=== PATIENT | female | born 1985 | race Caucasian/White ===

== ENCOUNTER 2018-06-02 17:15 | Emergency (ER) | payer OTHER ==
[2018-06-02 17:35] VITALS: BP 107/67
--- NOTE | 2018-06-02 18:11 | UC ---
Abdominal Pain Female HPI - HPI Summary HPI Summary: 32 yo who states she has been suffering from low abdominal pain for the past 2 days. On 05-31-18 the pain woke her up from sleep and she was kept under observation overnight at [facility]. She states that the CT scan showed a left ovarian cyst and fibroids, but that her pain is more in the right pelvic area now. She has history of endometriosis and has had exploratory laparoscopy in the past. Since she was discharged from the ER she states she has had nothing to eat or drink and continues having nausea, vomiting (last episode after drinking coffee this morning) and diarrhea. Denies any significant vaginal discharge or dysuria. The abdominal pain impairs her walking. - History of Current Complaint Chief Complaint: UCAbdominalPain Stated Complaint: RIGHT LOWER ABDOMINAL PAIN Time Seen by Provider: 06/02/18 17:46 Hx Obtained From: Patient Hx Last Menstrual Period: 05/25/18 ?: No Onset/Duration: Sudden Onset, Lasting Days Timing: Constant Severity Initially: Moderate Severity Currently: Severe Pain Intensity: 8 Location: Discrete At: RLQ Radiates: Yes Radiates to: Inguinal Character: Sharp Aggravating Factor(s): Nothing Alleviating Factor(s): Nothing Associated Signs and Symptoms: Positive: Diaphoresis, Fever, Nausea, Vomiting, Diarrhea - Risk Factors Ectopic Risk Factor: Maternal Age ^ 30, Prior Pelvic Surgery Ovarian Torsion Risk Factor: Reproductive Age, Ovarian Cysts/Tumors Allergies/Adverse Reactions: Allergies Allergy/AdvReac Type Severity Reaction Status Date / Time naproxen Allergy Itching Verified 06/02/18 17:48 Penicillins Allergy Hives Verified 06/02/18 17:48 tramadol Allergy See Comment Verified 06/02/18 17:48 Home Medications: Home Medications Oxycodone HCl/Acetaminophen [Percocet 5-325 mg Tablet] 1 each PO DAILY 06/02/18 [History Confirmed 06/02/18] clonazePAM TAB(*) [KlonoPIN TAB(*)] 1 mg PO BID 06/02/18 [History Confirmed ] PMH/Surg Hx/FS Hx/Imm Hx Previously Healthy: Yes Psychological History: Depression - Surgical History Surgical History: Yes Surgery Procedure, Year, and Place: D&C for endometriosis 01/2012. T & A - Family History Known Family History: Positive: None - Social History Alcohol Use: None Substance Use Type: None Substance Use Comment - Amount & Last Used: IV drugs Smoking Status (MU): Heavy Every Day Tobacco Smoker Type: Cigarettes Amount Used/How Often: 1/2 ppd Length of Time of Smoking/Using Tobacco: 4 Years Have You Smoked in the Last Year: Yes Household Exposure Type: Cigarettes - Immunization History Most Recent Influenza Vaccination: Fall 2013 Review of Systems Gastrointestinal: Abdominal Pain, Vomiting, Diarrhea, Nausea Motor: Negative Neurovascular: Negative All Other Systems Reviewed And Are Negative: Yes Physical Exam Triage Information Reviewed: Yes Appearance: Well-Appearing, No Pain Distress, Well-Nourished Vital Signs: Initial Vital Signs Temp 97.8 F 06/02/18 17:29 Pulse 81 06/02/18 17:29 Resp 12 06/02/18 17:29 BP 107/67 06/02/18 17:29 Pulse Ox 99 06/02/18 17:29 Vital Signs Reviewed: Yes Eyes: Positive: Conjunctiva Clear ENT: Positive: Pharynx normal Neck: Positive: Supple, Nontender, No Lymphadenopathy Respiratory: Positive: Chest non-tender, Lungs clear, Normal breath sounds, No respiratory distress Cardiovascular: Positive: RRR, No Murmur, Pulses Normal, Brisk Capillary Refill Abdomen Description: Positive: No Organomegaly, Distended, Guarding, McBurney's Point Tenderness Bowel Sounds: Positive: Present Musculoskeletal: Positive: Strength Limited @ - SLR right Neurological: Positive: Alert, Muscle Tone Normal Skin Exam: Normal Abd Pain Female Course/Dx - Course Course Of Treatment: Patient has RLQ pain, cannot tolerate PO. Patient was instructed to go to [facility] CY. ER was notified. - Differential Dx/Diagnosis Provider Diagnoses: Acute Abdominal Pain Discharge - Sign-Out/Discharge Documenting (check all that apply): Patient Departure All imaging exams completed and their final reports reviewed: No Studies - Discharge Plan Condition: Guarded Disposition: HOME Patient Education Materials: Acute Abdominal Pain (ED) Referrals: Chantell Nieves MD [Primary Care Provider] - Additional Instructions: Please go immediately to [facility] Emergency room as you have acute abdominal pain which needs further evaluation. - Billing Disposition and Condition Condition: GUARDED Disposition: Home
== END 2018-06-02 18:14 | disposition home or self-care (01) ==
LOC: UCCORT 17:15
DX: R10.31 Right lower quadrant pain (principal); Z88.0 Allergy status to penicillin; Z88.5 Allergy status to narcotic agent
CPT/HCPCS: 99212; G0463

== ENCOUNTER 2018-06-19 16:52 | Emergency (ER) | payer OTHER ==
[2018-06-19 17:41] VITALS: BP 104/66
--- NOTE | 2018-06-19 18:03 | UC ---
Lower Extremity/Ankle HPI - HPI Summary HPI Summary: 32 y/o female presents to the urgent care c/o B/L foot pain, swelling and bruising s/p dropping an air conditioning yesterday. Pt reports she went to the [facility] and X-rays were done of both feet and was told they were negative. She was Rx Ibuprofen and Tylenol. this morning she woke up w/ more swelling LF> Rt and pain is throbbing 9/10. She is unable to walk due to pain. Pt denies numbness and tingling sensation over the feet or toes. Denies calf pain, SoB, chest pain, abdominal pain, N/V/D. Pt request pain medications and states she allergic to all NSAIDs - History of Current Complaint Chief Complaint: UCLowerExtremity Stated Complaint: BILATERAL FOOT INJURY Time Seen by Provider: 06/19/18 18:01 Hx Obtained From: Patient Hx Last Menstrual Period: 05/27/18 Onset/Duration: Sudden Onset, Lasting Days - 1 day, Still Present, Worse Since - today Severity Initially: Severe Severity Currently: Severe Pain Intensity: 9 Pain Scale Used: 0-10 Numeric Aggravating Factor(s): Standing, Ambulation Alleviating Factor(s): Rest, Elevation Able to Bear Weight: No - Risk Factors Gout Risk Factors: Negative DVT Risk Factors: Negative Septic Arthritis Risk Factor: Negative - Allergies/Home Medications Allergies/Adverse Reactions: Allergies Allergy/AdvReac Type Severity Reaction Status Date / Time naproxen Allergy Itching Verified 06/20/18 19:16 Penicillins Allergy Hives Verified 06/20/18 19:16 tramadol Allergy See Comment Verified 06/20/18 19:16 Home Medications: Home Medications Ibuprofen TAB* [Motrin TAB* 800 MG] 800 mg PO Q6H PRN 06/19/18 [History Confirmed 06/19/18] PMH/Surg Hx/FS Hx/Imm Hx Previously Healthy: Yes Other GI/ History: Endometriosis Psychological History: Depression Other History Of: Hepatitis C - Surgical History Surgical History: Yes Surgery Procedure, Year, and Place: D&C for endometriosis 01/2012. T & A - Family History Known Family History: Positive: None - Social History Occupation: Unemployed Lives: With Family Alcohol Use: None Substance Use Type: None Substance Use Comment - Amount & Last Used: IV drugs Smoking Status (MU): Heavy Every Day Tobacco Smoker Type: Cigarettes Amount Used/How Often: 1/2 ppd Length of Time of Smoking/Using Tobacco: 4 Years Have You Smoked in the Last Year: Yes Household Exposure Type: Cigarettes - Immunization History Most Recent Influenza Vaccination: Fall 2013 Review of Systems Constitutional: Negative Skin: Bruising - both feet, Other - swelling of both feet Eyes: Negative ENT: Negative Respiratory: Negative Cardiovascular: Negative Gastrointestinal: Negative Genitourinary: Negative Motor: Negative Neurovascular: Negative Musculoskeletal: Decreased ROM - left foot, Other: - B/L feet pain s/p dropping an AC Neurological: Negative Psychological: Negative Is Patient Immunocompromised?: No All Other Systems Reviewed And Are Negative: Yes Physical Exam - Summary Physical Exam Summary: Vital Signs Reviewed: Yes General : well developed, well nourished female w/o any apparent mild pain distress Eyes: Positive: Conjunctiva Clear - PERRLA, EOMI ENT: Positive: Normal ENT inspection, Hearing grossly normal, Pharynx normal, TMs normal Neck: Positive: Supple, Nontender, No Lymphadenopathy Respiratory: Positive: Chest non-tender, Lungs clear, Normal breath sounds, No respiratory distress Cardiovascular: Positive: RRR, No Murmur, Pulses Normal Abdomen Description: Positive: Nontender, No Organomegaly, Soft. Negative: CVA Tenderness (R), CVA Tenderness (L) Bowel Sounds: Positive: Present Musculoskeletal: Positive: Strength Intact, ROM Intact, No Edema, B/L Feet/Toes : Pt is able to bear weight but ambulate with limping. B/l feet w/ swelling and bruising, ecchymosis, LF>RT, no ulcers or break in skin integrity. The L foot is without obvious asymmetry or deformity when compared to the R foot. No bony step-off, No tenderness to palpation over toes, tenderness over the dorsal side of mid foot , no tenderness of hindfoot, Decrease plantar/ dorsiflexion, inversion/eversion due to pain. Distal motor and neurovascular status are intact. Neurological Exam: Normal Psychological Exam: Normal Skin Exam: Normal Triage Information Reviewed: Yes Vital Signs: Initial Vital Signs Temp 98.1 F 06/19/18 17:34 Pulse 68 06/19/18 17:34 Resp 16 06/19/18 17:34 BP 104/66 06/19/18 17:34 Pulse Ox 100 06/19/18 17:34 Lower Extremity Course/Dx - Course Course Of Treatment: 32 y/o female presents to the urgent care c/o B/L foot pain , swelling and bruising s/p dropping an air conditioning yesterday. Pt reports she went to the [facility] and X-rays were done of both feet and was told they were negative. She was Rx Ibuprofen and Tylenol. this morning she woke up w/ more swelling LF>Rt and pain is throbbing /10. She is unable to walk due to pain. Pt denies numbness and tingling sensation over the feet or toes. Denies calf pain, SoB, chest pain, abdominal pain, N/V/D. Pt request pain medications and states she allergic to all NSAIDs. Hx obtained. Pt is feeling w/ Nausea. pt given Zofran PO to alleviate symptoms. Pt stated last dose of Ibuprofen PO 2 hrs ago w/o any improvment of symptoms. However Pt states she is allergic to all NSAID's. I did an I-stop on Pt. Pt has been Rx [place] 2 weeks ago 5 tabs. and continueslly Rx Clonazepan. Since no images availble from [facility] I discussed Pt's symptoms w/ Dr Arciniega and he recommended to ordered LF foot X- ray: Impression:It seems there is a possible fracture of the Cuneiform bone. Dr Arciniega agrees and he recommends to immobilized Pt's foot w/ CAM boot and f/u w / Orhtkalli Campos tomorrow. Pt given 1 tab of [place] at the clinic. Pt tolerated well medication. Pt Rx 8 tabs of [place] and strongly advised her to f/ u w/ Dr Phoenix tomorrow morning. Pt will be notified of final Radiology reading tomorrow. Pt's left foot immobilized ww/ CAM boot and given crutches to avoid weight bearing. PT understood and agreed with D/C instructions. Pt left clinic hemodynamically stable, A&OX3. - Differential Dx/Diagnosis Differential Diagnosis/HQI/PQRI: Compartment Syndrome, Contusion, Dislocation, Fracture (Closed), Sprain, Strain, Tendonitis Provider Diagnoses: 1- B/L feet pain s/p injury. 2-left foot fracture Discharge - Sign-Out/Discharge Documenting (check all that apply): Patient Departure - D/C home All imaging exams completed and their final reports reviewed: No - Discharge Plan Condition: Stable Disposition: HOME Prescriptions: HYDROcodone/ACETAMIN 5-325 MG* [[place] 5-325 TAB*] 1 tab PO Q6H PRN #8 tab MDD 1g /day-4g/day PRN Reason: Pain Patient Education Materials: Foot Sprain (ED) Referrals: Chantell Nieves MD [Primary Care Provider] - 3 Days Will Phoenix MD [Medical Doctor] - 1 Day Additional Instructions: 1-Please take medications as directed to alleviate pain and swelling. 2-Please apply ice, keep your foot immobilized with CAM boot. Elevate your foot. Avoid strenuous exercise . Use crutches to avoid weight bearing 3- Please f/u with Orthopedic Dr Phoenix tomorrow for further evaluation and treatment. - Billing Disposition and Condition Condition: STABLE Disposition: Home - Attestation Statements Provider Attestation: Per institutional requirements, I have reviewed the chart, however, I was not consulted specifically or made aware of this patient by the midlevel provider. I did not personally evaluate, interact with , or disposition this patient.
[2018-06-19] MEDS ORDERED: Ondansetron ODT TAB* 4 MG PO ONE (18:21)
[2018-06-19] MEDS ORDERED: HYDROcodone/ACETAMIN 5-325 MG* 1 TAB PO ONE (19:07)
--- NOTE | 2018-06-20 07:29 | RAD ---
INDICATION: Left foot injury. TECHNIQUE: 3 views of the left foot were obtained. FINDINGS: There is diffuse soft tissue swelling. The bones are in normal alignment. There is a faint renal lucent line which projects over the medial cuneiform possibly representing a nondisplaced fracture versus artifact. This is only seen in one view. No other fractures are seen. IMPRESSION: POSSIBLE NONDISPLACED FRACTURE OF THE MEDIAL CUNEIFORM BONE. THIS COULD BE FURTHER EVALUATED WITH CT IMAGING. R0
--- NOTE | 2018-06-20 14:06 | UC ---
- Progress Note Progress Note: I CALLED THE PATIENT. FULL NAME AND DATE OF VERIFIED. PATIENT ADVISED OF OFFICIAL X-RAY REPORT STATING POSSIBLE NONDISPLACED FRACTURE OF THE MEDIAL CUNEIFORM BONE OF LEFT FOOT. SHE STATES SHE DID SEE DR. PHOENIX WITH ORTHOPEDICS TODAY AND HAS BEEN PLACED IN A CAST AND GIVEN CRUTCHES. SHE WILL CONTINUE TO FOLLOW-UP WITH HIM AND HER PCP. PT REQUESTED ADDITIONAL NARCOTICS SHE REPORTS DR. PHOENIX DECLINED TO PRESCRIBE FOR HER. I ADVISED THAT IF SHE REQUIRED FURTHER NARCOTICS SHE WOULD NEED TO FOLLOW-UP WITH HER PCP. - JIN JOHNS MD Discharge - Sign-Out/Discharge Documenting (check all that apply): Post-Discharge Follow Up All imaging exams completed and their final reports reviewed: Yes - Discharge Plan Condition: Stable Disposition: HOME Prescriptions: HYDROcodone/ACETAMIN 5-325 MG* [[place] 5-325 TAB*] 1 tab PO Q6H PRN #8 tab MDD 1g /day-4g/day PRN Reason: Pain Patient Education Materials: Foot Sprain (ED) Referrals: Will Phoenix MD [Medical Doctor] - 1 Day Chantell Nieves MD [Primary Care Provider] - 3 Days Additional Instructions: 1-Please take medications as directed to alleviate pain and swelling. 2-Please apply ice, keep your foot immobilized with CAM boot. Elevate your foot. Avoid strenuous exercise . Use crutches to avoid weight bearing 3- Please f/u with Orthopedic Dr Phoenix tomorrow for further evaluation and treatment. - Billing Disposition and Condition Condition: STABLE Disposition: Home
== END 2018-06-19 19:45 | disposition home or self-care (01) ==
LOC: UCCORT 16:52
DX: S92.902A Unspecified fracture of left foot, initial encounter for closed fracture (principal); W20.8XXA Other cause of strike by thrown, projected or falling object, initial encounter; Y93.9 Activity, unspecified; Y92.9 Unspecified place or not applicable; M79.671 Pain in right foot; Z88.6 Allergy status to analgesic agent; Z88.0 Allergy status to penicillin; Z88.5 Allergy status to narcotic agent; F17.210 Nicotine dependence, cigarettes, uncomplicated
CPT/HCPCS: 99213; A9270-GY; G0463

== ENCOUNTER 2018-06-20 18:48 | Emergency (ER) | payer OTHER ==
[2018-06-20 19:40] VITALS: BP 94/57
--- NOTE | 2018-06-20 19:58 | UC ---
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 Pt here for refil of hydrocodone for LOP 05/16." -Dr Mcneil called her today w/ results of xray showing frx. Pt had already been seen by ortho. she was advised by both to call PCP for pain management. states that she was unable to get an appt. -she has a cast on from ortho. -she was given 8 hydrocodone 24 hrs ago from our facility that were enough tabs for 48 hrs. she has used them all already. -she is taking ibuprofen for pain. gets face swelling w/ naproxyn. -here w/ her brother. - History of Current Complaint Chief Complaint: UCMedRefill Stated Complaint: RE CHECK LEFT FOOT BREAK Time Seen by Provider: 06/20/18 19:57 Hx Last Menstrual Period: 05/27/18 Pain Intensity: 8 - Allergies/Home Medications Allergies/Adverse Reactions: Allergies Allergy/AdvReac Type Severity Reaction Status Date / Time naproxen Allergy Itching Verified 06/20/18 19:16 Penicillins Allergy Hives Verified 06/20/18 19:16 tramadol Allergy See Comment Verified 06/20/18 19:16 Home Medications: Home Medications Acetaminophen [Extra Strength Non-Aspirin] 1,000 mg PO Q6H PRN 06/20/18 [ History Confirmed 06/20/18] PMH/Surg Hx/FS Hx/Imm Hx Previously Healthy: Yes - Surgical History Surgical History: Yes Surgery Procedure, Year, and Place: D&C for endometriosis 01/2012. T & A - Family History Known Family History: Positive: None - Social History Alcohol Use: None Substance Use Type: None Substance Use Comment - Amount & Last Used: IV drugs Smoking Status (MU): Heavy Every Day Tobacco Smoker Type: Cigarettes Amount Used/How Often: 1/2 ppd Length of Time of Smoking/Using Tobacco: 4 Years Have You Smoked in the Last Year: Yes Household Exposure Type: Cigarettes - Immunization History Most Recent Influenza Vaccination: Fall 2013 Review of Systems Constitutional: Negative Skin: Negative Eyes: Negative ENT: Negative Respiratory: Negative Cardiovascular: Negative Gastrointestinal: Negative Genitourinary: Negative Motor: Negative Neurovascular: Negative Musculoskeletal: Arthralgia - left foot Neurological: Negative Psychological: Negative Is Patient Immunocompromised?: No All Other Systems Reviewed And Are Negative: Yes Physical Exam Triage Information Reviewed: Yes Appearance: Well-Appearing, No Pain Distress, Well-Nourished - on crutches w/ cast on left lower extremity, below knee. Vital Signs: Initial Vital Signs Temp 97.6 F 06/20/18 19:19 Pulse 102 06/20/18 19:19 Resp 18 06/20/18 19:19 BP 94/57 06/20/18 19:19 Pulse Ox 98 06/20/18 19:19 Vital Signs Reviewed: Yes Musculoskeletal: Positive: Other: - left LE w/ cast to just below knee. using crutches to ambulate. no further exam done. Neurological Exam: Normal Psychological Exam: Normal Lower Extremity Course/Dx - Course Course Of Treatment: Pt is here requesting further narcotic rx. She was given 8 tabs 24 hrs ago that she has already used. These were enought to last for 48 hrs. I explained that this is a red flag for abuse potential. ISTOP ref # [id number]. -she regularly takes clonazepam. dose increased from BID to TID last rx filled 06/13/18. disc increased risk of complications including SI in combination of opiates w/ benzo. -recommend Ibuprofen 800mgs TID. can use APAP. -pain meds were denied by ortho and deferred to PCP. I agree w/ this recommendation. She can also call their emergency line. -we discussed that it is not realiztic to eliminate pain completely as are her expectations at this time. She has received a higher level of care w/ management from ortho. - Differential Dx/Diagnosis Differential Diagnosis/HQI/PQRI: Fracture (Closed) Provider Diagnoses: left foot fracture, closed Discharge - Sign-Out/Discharge Documenting (check all that apply): Patient Departure All imaging exams completed and their final reports reviewed: No Studies - Discharge Plan Condition: Stable Disposition: HOME Patient Education Materials: Foot Fracture in Adults (ED) Referrals: Chantell Nieves MD [Primary Care Provider] - 3 Days Additional Instructions: Please call your PCP on Saturday for follow up for pain management - Billing Disposition and Condition Condition: STABLE Disposition: Home
== END 2018-06-20 20:20 | disposition home or self-care (01) ==
LOC: UCCORT 18:48
DX: S92.302D Fracture of unspecified metatarsal bone(s), left foot, subsequent encounter for fracture with routine healing (principal); X58.XXXD Exposure to other specified factors, subsequent encounter; Y92.9 Unspecified place or not applicable; Z88.8 Allergy status to other drugs, medicaments and biological substances; Z88.0 Allergy status to penicillin
CPT/HCPCS: 99211; G0463

== ENCOUNTER 2018-06-27 16:08 | Emergency (ER) | payer OTHER ==
--- OUTSIDE RECORDS SUMMARY | 2018-06-27 16:20 | XMS REPORT ---
:1985 External Reference #:[id number] Author Organization [employer] Address [address] [place] [address] [place] [address] Phone [phone] Care Team Providers Name Role Phone Chantell Nivees MD Care Team Information Adult Live In Caregiver Unavailable Chantell Nieves MD Primary Care Physician Unavailable Payers Type Date Identification Numbers Payment Provider Subscriber Commercial Policy Number: [id number] [employer] Number: [id number] [address] PayID: [id number] [place] [address] Problems Description No Information Social History Type Date Description Comments Marital Status Lives With Spouse 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 ETOH Use Occasionally consumes alcohol Smoking Light tobacco smoker (10 or fewer cigarettes/day) Recreational Drug Use Denies Drug Use Daily Caffeine Consumes on average 4 cups of regular coffee per day Exercise Type/Frequency Exercises sporadically Allergies, Adverse Reactions, Alerts Date Description Reaction Status Severity Comments 09/04/2016 Ultram Seizure active Severe 09/04/2016 Toradol Contact dermatitis active Severe 09/04/2016 Penicillins active Moderate 09/04/2016 Naprosyn active Mild Medications Medication Date Status Form Strength Qnty SIG Indications Ordering Provider Tylenol Extra Active Tablets 500mg 2 by Unknown Strength 000 mouth as needed Benadryl Active Tablets 25mg 1 tablet Unknown Allergy 000 by mouth three times a day, as needed Multi Vitamin Active Tablets 1 by Unknown 000 mouth every day Hydrocodone-Ac Active Tablets 5-325mg 1 tab po Unknown etaminophen 000 q 6 hours as needed for pain. Ibuprofen Active Tablets 800mg 1 tablet Unknown 000 q8 hours as needed for pain Fluoxetine HCL Active Capsules 40mg 1 by Unknown 000 mouth every day Clonazepam Active Tablets 1mg tid Unknown 000 Proair HFA Hx Aerosol 108(90Base) 2 puffs Unknown 000 - mcg/Act by mouth every 4 018 hours as needed Vital Signs Date Vital Result Comment 06/20/2018 Height 67 inches 5'7" Weight 190.00 lb Heart Rate 80 /min BP Systolic Sitting 102 mmHg BP Diastolic Sitting 70 mmHg Pain Level 8 Prior to taking medication. BMI (Body Mass Index) 29.8 kg/m2 Results Description No Information Procedures Date CPT Code Description Status 06/20/2018 52812 Short Leg Cast Completed Plan of Care Future Appointment(s):07/07/2018 9:15 am - Will Phoenix MD at [facility] AT [id number]/14/2018 - Will Phoenix, [id number] Contusion of left foot, initial encounterFollow up:Follow up: 2 [id number] Contusion of left ankle, initial encounter
--- NOTE | 2018-06-28 09:25 | UC ---
Discharge - Sign-Out/Discharge Documenting (check all that apply): Patient Departure All imaging exams completed and their final reports reviewed: No Studies - Discharge Plan Condition: Stable Disposition: LEFT WITHOUT BEING SEEN Referrals: Chantell Nieves MD [Primary Care Provider] - - Billing Disposition and Condition Condition: STABLE Disposition: Left Without Being Seen
== END 2018-06-27 17:56 | disposition left against medical advice (07) ==
LOC: UCCORT 16:08
DX: M25.539 Pain in unspecified wrist (principal); Z53.21 Procedure and treatment not carried out due to patient leaving prior to being seen by health care provider

== ENCOUNTER 2018-06-29 18:22 | Emergency (ER) | payer OTHER ==
[2018-06-29 19:26] VITALS: BP 108/60
--- NOTE | 2018-06-29 19:40 | UC ---
Hand/Wrist HPI - HPI Summary HPI Summary: C/O right wrist pain for 3 days. ? due to crutches. Fell using crutches. - History Of Current Complaint Chief Complaint: UCUpperExtremity Stated Complaint: WRIST INJURY Time Seen by Provider: 06/29/18 19:30 Hx Obtained From: Patient Hx Last Menstrual Period: 06/23/18 ?: No Onset/Duration: Sudden Onset, Lasting Days - 3, Still Present Severity Initially: Moderate Severity Currently: Moderate Pain Intensity: 7 Character Of Pain: Burning Aggravating Factor(s): Lifting Associated Signs And Symptoms: Positive: Bruising, Numbness/Tingling Related History: Dominant Hand Right - Allergies/Home Medications Allergies/Adverse Reactions: Allergies Allergy/AdvReac Type Severity Reaction Status Date / Time naproxen Allergy Itching Verified 06/29/18 19:26 Penicillins Allergy Hives Verified 06/29/18 19:26 tramadol Allergy See Comment Verified 06/29/18 19:26 PMH/Surg Hx/FS Hx/Imm Hx Other Endocrine History: endometriosis Psychological History: Bipolar Disorder Other History Of: Hepatitis C - Surgical History Surgical History: Yes Surgery Procedure, Year, and Place: D&C for endometriosis 01/2012. 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 Lives: With Family Alcohol Use: None Substance Use Type: None Substance Use Comment - Amount & Last Used: IV drugs Smoking Status (MU): Heavy Every Day Tobacco Smoker Type: Cigarettes Amount Used/How Often: 1/2 ppd Length of Time of Smoking/Using Tobacco: 4 Years Have You Smoked in the Last Year: Yes Household Exposure Type: Cigarettes Cessation Counseling: Patient Advised to Stop - Immunization History Most Recent Influenza Vaccination: Fall 2013 Review of Systems Skin: Bruising Musculoskeletal: Arthralgia - left wrist Neurological: Paresthesia - right 3rd 4th 5th fingers Is Patient Immunocompromised?: No All Other Systems Reviewed And Are Negative: Yes Physical Exam Triage Information Reviewed: Yes Appearance: Well-Appearing, Well-Nourished, Pain Distress Vital Signs: Initial Vital Signs Temp 97.9 F 06/29/18 19:18 Pulse 95 06/29/18 19:18 Resp 17 06/29/18 19:18 BP 108/60 06/29/18 19:18 Pulse Ox 98 06/29/18 19:18 Vital Signs Reviewed: Yes Eyes: Positive: Conjunctiva Clear Neck exam: Normal Respiratory: Positive: Lungs clear Cardiovascular Exam: Normal Musculoskeletal: Positive: ROM Limited @ - right wrist with pain. Neurological: Positive: Other: - hypersensitive to sharp over the area with trauma distal radius on the right. Psychological Exam: Normal Skin: Positive: Other - bruising Hand/Wrist Course/Dx - Differential Dx/Diagnosis Differential Diagnosis/HQI/PQRI: Abrasion, Contusion, Fracture, Tendonitis Provider Diagnoses: Contusion right wrist. Neuritis/ Neuralgia Discharge - Sign-Out/Discharge Documenting (check all that apply): Patient Departure All imaging exams completed and their final reports reviewed: No Studies - Discharge Plan Condition: Stable Disposition: HOME Prescriptions: Gabapentin 300 mg PO TID #90 capsule Patient Education Materials: Contusion in Adults (ED) Referrals: Chantell Nieves MD [Primary Care Provider] - Additional Instructions: Smoking Cessation Tricks. 1. Cut down by 1 cigarette per day every 2-3 days. Write the number of smokes for that day on the calendar. 2. Identify triggers to smoking: after meals, on the phone, in the car, with coffee, on breaks at work, etc. 3. Formulate a plan with a behavior to replace the smoking. Fireballs in the car , doodle pad on the phone, flavored creamer for the coffee, go for a walk after a meal or on break at work. 4. For stress smokes do deep breathing relaxation. Breath deep in through the nose hold the breath in for a few seconds then breath out slowly through the mouth. Nerve Contusion: A bruised nerve causes the nerve to be irritated and extra sensitive to all sensations. Ice can make it feel worse. Michael wraps frequently aren't tolerated either. It may take weeks to resolve. GABAPENTIN: Gabapentin is an anti-seizure medication that is more often used for nerve pain. It helps to stabilize the nerve to stop the pain. Its primary side effect is sedation which will improve over time. Most people will start with only one capsule 1 to 2 hours before bed, but if your pain is more severe you may want to start with one capsule twice a day. If the pain is still an issue after another 1-2days the dose may be increased to a maximum of 1 capsule 3 times a day. Decrease the dose by one capsule a day if there is excessive sedation or it is not working. You can also decrease it to discontinue it if the pain is resolving. - Billing Disposition and Condition Condition: STABLE Disposition: Home Images Hands: 1 - bruising with hypersensitivity
== END 2018-06-29 20:06 | disposition home or self-care (01) ==
LOC: UCCORT 18:22
DX: S60.211A Contusion of right wrist, initial encounter (principal); W19.XXXA Unspecified fall, initial encounter; Y93.9 Activity, unspecified; Y92.9 Unspecified place or not applicable; M79.2 Neuralgia and neuritis, unspecified; F17.210 Nicotine dependence, cigarettes, uncomplicated; Z88.6 Allergy status to analgesic agent; Z88.0 Allergy status to penicillin
CPT/HCPCS: 99212; G0463

== ENCOUNTER 2018-07-06 20:00 | Emergency (ER) | payer OTHER ==
[2018-07-06 20:19] VITALS: BP 117/71
--- NOTE | 2018-07-06 20:51 | UC ---
Lower Extremity/Ankle HPI - HPI Summary HPI Summary: Pt c/o left foot swelling s/p having a wooden nightstand fall on left foot last night. Pt reports that she had cast removed last week for fracture to left foot "in the same area"A - History of Current Complaint Chief Complaint: UCLowerExtremity Stated Complaint: LEFT FOOT INJURY Time Seen by Provider: 07/06/18 20:20 Hx Obtained From: Patient Hx Last Menstrual Period: 05/27/18 ?: No Onset/Duration: Sudden Onset, Still Present Severity Initially: Severe Severity Currently: Moderate Pain Intensity: 7 Aggravating Factor(s): Standing, Ambulation Alleviating Factor(s): Nothing Able to Bear Weight: No - Risk Factors Gout Risk Factors: Negative - Allergies/Home Medications Allergies/Adverse Reactions: Allergies Allergy/AdvReac Type Severity Reaction Status Date / Time ketorolac [From Toradol] Allergy Hives Verified 07/06/18 20:12 naproxen Allergy Itching Verified 06/29/18 19:26 Penicillins Allergy Hives Verified 06/29/18 19:26 tramadol Allergy See Comment Verified 06/29/18 19:26 PMH/Surg Hx/FS Hx/Imm Hx Previously Healthy: Yes Other History Of: Hepatitis C - Surgical History Surgical History: Yes Surgery Procedure, Year, and Place: D&C for endometriosis 01/2012. T & A - Family History Known Family History: Positive: Diabetes - Social History Occupation: Works From/At Home Lives: With Family Alcohol Use: None Substance Use Type: None Substance Use Comment - Amount & Last Used: IV drugs Smoking Status (MU): Heavy Every Day Tobacco Smoker Type: Cigarettes Amount Used/How Often: 1/2 ppd Length of Time of Smoking/Using Tobacco: 4 Years Have You Smoked in the Last Year: Yes Household Exposure Type: Cigarettes - Immunization History Most Recent Influenza Vaccination: Fall 2013 Review of Systems Constitutional: Negative Skin: Bruising Eyes: Negative ENT: Negative Respiratory: Negative Cardiovascular: Negative Gastrointestinal: Negative Genitourinary: Negative Motor: Decreased ROM - left foot Neurovascular: Negative Musculoskeletal: Arthralgia, Decreased ROM - left foot, Edema - left foot, Myalgia Neurological: Negative Psychological: Negative Is Patient Immunocompromised?: No All Other Systems Reviewed And Are Negative: Yes Physical Exam Triage Information Reviewed: Yes Appearance: Well-Appearing Vital Signs: Initial Vital Signs Temp 97.9 F 07/06/18 20:14 Pulse 101 07/06/18 20:14 Resp 14 07/06/18 20:14 BP 117/71 07/06/18 20:14 Pulse Ox 99 07/06/18 20:14 Vital Signs Reviewed: Yes Eye Exam: Normal ENT Exam: Normal Dental Exam: Normal Neck exam: Normal Respiratory: Positive: No respiratory distress Musculoskeletal: Positive: Strength Limited @ - left foot, ROM Limited @ - left foot, Edema @ - left foot Neurological Exam: Normal Psychological Exam: Normal Skin Exam: Other - small bruise to mid anterior foot. Lower Extremity Course/Dx - Course Course Of Treatment: pt has cam boot and crutches from previous fracture. Wore them and brought them to todays visit - Differential Dx/Diagnosis Differential Diagnosis/HQI/PQRI: Contusion, Fracture (Closed) Provider Diagnoses: contusion left foot Discharge - Sign-Out/Discharge Documenting (check all that apply): Patient Departure All imaging exams completed and their final reports reviewed: No - Discharge Plan Condition: Stable Disposition: HOME Patient Education Materials: Foot Contusion (ED), R.I.C.E. Treatment (ED) Referrals: Krystal Durbin MD [Primary Care Provider] - If Needed Will Phoenix MD [Medical Doctor] - If Needed - Billing Disposition and Condition Condition: STABLE Disposition: Home
--- NOTE | 2018-07-07 08:03 | RAD ---
Indication: Pain and swelling dorsum of LEFT foot following direct trauma. Comparison: June 19, 2018 Technique: AP, lateral, and oblique views LEFT foot. Report: Small accessory ossicle at the level of the second tarsometatarsal articulation noted. No cortical disruption or suspicious trabecular irregularity to suggest fracture. Normal articular alignment. Soft tissue swelling most prominent over the dorsum of the forefoot without change. No conspicuous foreign body evident. IMPRESSION: #. Soft tissue swelling. Negative for fracture. R0
--- NOTE | 2018-07-07 13:19 | UC ---
- EKG/XRAY/CT Xray Comments: correct diagnosis (foot XR) Discharge - Sign-Out/Discharge Documenting (check all that apply): Post-Discharge Follow Up All imaging exams completed and their final reports reviewed: Yes - Discharge Plan Condition: Stable Disposition: HOME Patient Education Materials: Foot Contusion (ED), R.I.C.E. Treatment (ED) Referrals: Krystal Durbin MD [Primary Care Provider] - If Needed Will Phoenix MD [Medical Doctor] - If Needed - Billing Disposition and Condition Condition: STABLE Disposition: Home
== END 2018-07-06 20:58 | disposition home or self-care (01) ==
LOC: UCCORT 20:00
DX: S90.32XA Contusion of left foot, initial encounter (principal); W20.8XXA Other cause of strike by thrown, projected or falling object, initial encounter; Y93.9 Activity, unspecified; Y92.003 Bedroom of unspecified non-institutional (private) residence as the place of occurrence of the external cause; Z88.0 Allergy status to penicillin; Z88.6 Allergy status to analgesic agent; Z88.8 Allergy status to other drugs, medicaments and biological substances; F17.210 Nicotine dependence, cigarettes, uncomplicated
CPT/HCPCS: 99211; G0463

== ENCOUNTER 2018-10-19 14:09 | Emergency (ER) | payer OTHER ==
[2018-10-19 14:46] VITALS: BP 102/59
--- NOTE | 2018-10-19 15:18 | UC ---
Abdominal Pain Female HPI - HPI Summary HPI Summary: Pt presents with c/o pelvic, lower abdominal and pain and cramping. Pt has hx of endometriosis. Pt took 4 preganancy tests at home 2 negative, and 2 positive. Pt is not using control but is sexually active - History of Current Complaint Chief Complaint: UCHeadache Stated Complaint: HEADACHES,CRAMPING Time Seen by Provider: 10/19/18 14:43 Hx Obtained From: Patient Hx Last Menstrual Period: 09/20/18 ?: Yes - here to confirm Timing: Intermittent Episodes Lasting: Severity Initially: Mild Severity Currently: Mild Pain Intensity: 4 Location: Diffuse, Suprapubic Radiates: No Character: Cramping, Dull, Sharp Aggravating Factor(s): Nothing Alleviating Factor(s): OTC Analgesics Associated Signs and Symptoms: Positive: Back Pain - Risk Factors Ectopic Risk Factor: Prior Pelvic Surgery - endometrisosis surgery Ovarian Torsion Risk Factor: Reproductive Age Allergies/Adverse Reactions: Allergies Allergy/AdvReac Type Severity Reaction Status Date / Time ketorolac [From Toradol] Allergy Hives Verified 10/19/18 14:51 naproxen Allergy Itching Verified 10/19/18 14:51 Penicillins Allergy Pt denies Verified 10/19/18 14:51 toradol allergy tramadol Allergy See Comment Verified 10/19/18 14:51 PMH/Surg Hx/FS Hx/Imm Hx Previously Healthy: Yes Other History Of: Hepatitis C - Surgical History Surgical History: Yes Surgery Procedure, Year, and Place: D&C for endometriosis 01/2012. T & A - Family History Known Family History: Positive: Diabetes - Social History Occupation: Works From/At Home Lives: With Family Alcohol Use: None Substance Use Type: None Substance Use Comment - Amount & Last Used: IV drugs Smoking Status (MU): Heavy Every Day Tobacco Smoker Type: Cigarettes Amount Used/How Often: 1/2 ppd Length of Time of Smoking/Using Tobacco: 4 Years Have You Smoked in the Last Year: Yes Household Exposure Type: Cigarettes - Immunization History Most Recent Influenza Vaccination: Fall 2013 Review of Systems All Other Systems Reviewed And Are Negative: Yes Constitutional: Positive: Fatigue Skin: Positive: Negative Eyes: Positive: Negative ENT: Positive: Negative Respiratory: Positive: Negative Cardiovascular: Positive: Negative Gastrointestinal: Positive: Abdominal Pain, Nausea Genitourinary: Positive: Negative Motor: Positive: Negative Neurovascular: Positive: Negative Musculoskeletal: Positive: Negative Neurological: Positive: Headache Psychological: Positive: Negative Is Patient Immunocompromised?: No Physical Exam Triage Information Reviewed: Yes Appearance: Well-Appearing Vital Signs: Initial Vital Signs Temp 99.4 F 10/19/18 14:36 Pulse 89 10/19/18 14:36 Resp 18 10/19/18 14:36 BP 102/59 10/19/18 14:36 Pulse Ox 100 10/19/18 14:36 Vital Signs Reviewed: Yes Eye Exam: Normal ENT Exam: Normal Dental Exam: Normal Neck exam: Normal Respiratory Exam: Normal Cardiovascular Exam: Normal Abdominal Exam: Normal Abdomen Description: Positive: Nontender Musculoskeletal Exam: Normal Neurological Exam: Normal Psychological Exam: Normal Skin Exam: Normal Abd Pain Female Course/Dx - Differential Dx/Diagnosis Differential Diagnosis: Ectopic , Provider Diagnosis: , Pelvic pain Discharge - Sign-Out/Discharge Documenting (check all that apply): Patient Departure All imaging exams completed and their final reports reviewed: No Studies - Discharge Plan Condition: Stable Disposition: HOME Prescriptions: Prenat Vit 17/Iron/Folic/Om3,6 [Elite-Ob 400 Capsule] 1 cap PO DAILY #30 cap Patient Education Materials: (ED), Pelvic Pain in Women (ED) Referrals: Krystal Durbin MD [Primary Care Provider] - As Soon As Possible - Billing Disposition and Condition Condition: STABLE Disposition: Home
== END 2018-10-19 15:33 | disposition home or self-care (01) ==
LOC: UCCORT 14:09
DX: R10.2 Pelvic and perineal pain (principal); O26.899 Other specified pregnancy related conditions, unspecified trimester; Z3A.00 Weeks of gestation of pregnancy not specified; Z88.6 Allergy status to analgesic agent; Z88.0 Allergy status to penicillin; Z88.5 Allergy status to narcotic agent; F17.210 Nicotine dependence, cigarettes, uncomplicated
CPT/HCPCS: 81003; 84702; 99212; G0463

== ENCOUNTER 2019-07-13 12:48 | Emergency (ER) | payer OTHER ==
[2019-07-13 14:07] VITALS: BP 112/70
[2019-07-13] MEDS ORDERED: Ibuprofen TAB* 600 MG PO ONE (14:26)
--- NOTE | 2019-07-13 14:49 | UC ---
Lower Extremity/Ankle HPI - HPI Summary HPI Summary: 33-year-old woman comes in with a chief complaint of left lower leg pain after a fall this morning. Patient slipped and fell at home and slipped down some steps. Her left knee was flexed and her left lower leg was underneath her and she went down several steps. She has pain on the left blanchard and on the top of the left foot. She is able to bear weight but it does hurt. She took some ibuprofen earlier this morning and also some acetaminophen just prior to arrival. Both of these to help some with the pain. There is some bruising on the blanchard. Patient has remote history of a foot fracture on the left. - History of Current Complaint Chief Complaint: UCLowerExtremity Stated Complaint: HIPLEGFOOT PAIN AFTER AFALL Time Seen by Provider: 07/13/19 14:22 Hx Last Menstrual Period: 09/20/18 (3 weeks post ) Pain Intensity: 7 - Allergies/Home Medications Allergies/Adverse Reactions: Allergies Allergy/AdvReac Type Severity Reaction Status Date / Time ketorolac [From Toradol] Allergy Hives Verified 07/13/19 14:03 naproxen Allergy Itching Verified 07/13/19 14:03 Penicillins Allergy Pt denies Verified 07/13/19 14:03 toradol allergy tramadol Allergy See Comment Verified 07/13/19 14:03 Home Medications: Home Medications Acetaminophen [Acetaminophen Extra Strength] 1,000 mg PO Q6H PRN 07/13/19 [ History Confirmed 07/13/19] Ferrous Sulfate TAB* 325 mg PO DAILY 07/13/19 [History Confirmed 07/13/19] Ibuprofen TAB* [Motrin TAB* 800 MG] 800 mg PO Q8H PRN 07/13/19 [History Confirmed 07/13/19] diPHENhydraMINE PO* [Benadryl PO 25 MG TAB*] 50 mg PO BEDTIME PRN 07/13/19 [ History Confirmed 07/13/19] PMH/Surg Hx/FS Hx/Imm Hx Previously Healthy: Yes Other History Of: Hepatitis C - Surgical History Surgical History: Yes Surgery Procedure, Year, and Place: D&C for endometriosis 01/2012. T & A - Family History Known Family History: Positive: Diabetes - Social History Alcohol Use: None Substance Use Type: None Substance Use Comment - Amount & Last Used: IV drugs Smoking Status (MU): Heavy Every Day Tobacco Smoker Type: Cigarettes Amount Used/How Often: 1/2 PPD Length of Time of Smoking/Using Tobacco: Since Age 17 Have You Smoked in the Last Year: Yes Household Exposure Type: Cigarettes - Immunization History Most Recent Influenza Vaccination: Fall 2013 Review of Systems All Other Systems Reviewed And Are Negative: Yes Constitutional: Positive: Negative Skin: Positive: Bruising Eyes: Positive: Negative ENT: Positive: Negative Respiratory: Positive: Negative Cardiovascular: Positive: Negative Gastrointestinal: Positive: Negative Motor: Positive: Negative Neurovascular: Positive: Negative Musculoskeletal: Positive: Other: - SEE HPI Neurological: Positive: Negative Psychological: Positive: Negative Is Patient Immunocompromised?: No Physical Exam Triage Information Reviewed: Yes Appearance: Well-Appearing, Well-Nourished, Pain Distress - MILD WITH ROM AND EXAM Vital Signs: Initial Vital Signs Temp 98.6 F 07/13/19 14:00 Pulse 85 07/13/19 14:00 Resp 14 07/13/19 14:00 BP 112/70 07/13/19 14:00 Pulse Ox 100 07/13/19 14:00 Vital Signs Reviewed: Yes Eye Exam: Normal Eyes: Positive: Conjunctiva Clear Neck: Positive: Supple Respiratory: Positive: No respiratory distress Musculoskeletal: Positive: Other: - There is tenderness and swelling on the left foot dorsum and also left anterior blanchard. Normal sensation. Normal capillary refill. Normal dorsalis pedis pulse. Full range of motion of the toe was ankle and knee. Normal strength. Neurological: Positive: Alert Psychological: Positive: Age Appropriate Behavior Skin: Positive: Other - Ecchymosis on the dorsum of left foot and also left anterior blanchard Lower Extremity Course/Dx - Course Course Of Treatment: Customer Contact Representative: July Patel S ([id number]) Wardrobe Coordinator: EAMON (EAMON) Report Date: 07/13/2019 14:25:00 Report Status: Final Start of Report Content Patient Name: TIARRA HAYS Medical Record#: [id number] Ordering Physician: Reagan Rudolph MD Acct.#: [id number] : 1985 Age : 33 Sex: F Location: [facility] Exam Date: 07/13/191424 ADM Status : REG ER Order Information: TIBIA FIBULA LEFT Accession Number: [id number] CPT : 10424 Indication: Left lower leg pain. 2 views of the left lower leg demonstrates no fracture. No other bone or joint abnormality is identified. IMPRESSION: No fracture of the left lower leg is noted. <Electronically signed by July Patel MD in OV> 07/13/19 1504 Dictated By: July Patel MD Dictated Date/Time: 07/13/19 150 Transcribed Date/Time: 07/13/191501 Copy to: CC:Krystal Durbin MD; Reagan Rudolph MD Imaging - [facility] [address] [place] [address] ph [phone] ph [phone] ph [phone]) End of Report Content Customer Contact Representative: July Patel S, ([id number]) Wardrobe Coordinator: EAMON, (NUANCE) Report Date: 07/13/2019 14:25:00 Report Status: Final Start of Report Content Patient Name: TIARRA HAYS Medical Record#: [id number] Ordering Physician: Reagan Rudolph MD Acct.#: [id number] : 1985 Age : 33 Sex: F Location: [facility] Exam Date: 07/13/191424 ADM Status : REG ER Order Information: FOOT LEFT 3+ VWS Accession Number: [id number] CPT: 55026 Indication: Left foot pain. 3 views of left foot demonstrates accessory ossicle adjacent to the navicular. Adjacent bony fragment is noted lateral to the cuboid. This is likely old. No other fractures are identified. IMPRESSION: No fracture of the left foot is noted. <Electronically signed by July Patel MD in OV> 07/13/191501 Dictated By: July Patel MD Dictated Date/Time: 07/13/19 150 Transcribed Date/Time: 07/13/191500 Copy to: CC:Krystal Durbin MD; Reagan Rudolph MD Imaging - [facility] [address] [place] [address] ph [phone] ph [phone] ph ) End of Report Content I discussed the x-rays with the patient. Patient was placed in a cam boot by nursing patient is intact after placement of the camp with the plan is ice and anti-inflammatories ibuprofen weightbearing as tolerated and follow-up source medicine or orthopedics if not completely improved. - Differential Dx/Diagnosis Provider Diagnosis: Sprain of left foot, Contusion of left lower leg Discharge ED - Sign-Out/Discharge Documenting (check all that apply): Patient Departure All imaging exams completed and their final reports reviewed: Yes - Discharge Plan Condition: Stable Disposition: HOME Patient Education Materials: Contusion in Adults (ED), Foot Sprain (ED) Referrals: Krystal Durbin MD [Primary Care Provider] - Additional Instructions: FOLLOW UP WITH YOUR DOCTOR IF NOT COMPLETELY IMPROVED. GET REEVALUATED SOONER IF NOT IMPROVING OR YOUR CONDITION WORSENS OR ANY QUESTIONS OR CONCERNS - Billing Disposition and Condition Condition: STABLE Disposition: Home
== END 2019-07-13 15:25 | disposition home or self-care (01) ==
LOC: UCCORT 12:48
DX: S93.602A Unspecified sprain of left foot, initial encounter (principal); S80.12XA Contusion of left lower leg, initial encounter; F17.210 Nicotine dependence, cigarettes, uncomplicated; Z88.8 Allergy status to other drugs, medicaments and biological substances; Z88.5 Allergy status to narcotic agent; Z88.0 Allergy status to penicillin; W01.0XXA Fall on same level from slipping, tripping and stumbling without subsequent striking against object, initial encounter; Y92.009 Unspecified place in unspecified non-institutional (private) residence as the place of occurrence of the external cause
CPT/HCPCS: 99212; A9270-GY; G0463